=== PATIENT | female | born 1995 | race Caucasian/White ===

== ENCOUNTER 2020-11-20 06:42 | Emergency (ER) | payer OTHER ==
[~2020-11-20] VITALS: Ht 154.9 cm; Wt 52.1 kg
[2020-11-20 06:45] VITALS: BP 112/75
== END 2020-11-20 07:52 | disposition home or self-care (01) ==
LOC: ED 07:30
DX: M26.601 Right temporomandibular joint disorder, unspecified (principal)
CPT/HCPCS: 99281